=== PATIENT | male | born 1995 | race Caucasian/White ===

== ENCOUNTER 2025-02-08 11:36 | Emergency (ER) | payer BC ==
[2025-02-08] MEDS ORDERED: CIPROFLOXACIN 400mg IV 400 MG/200 ML BAG IV ONE (12:06)
[2025-02-08] MEDS ORDERED: METRONIDAZOLE 500mg IVPB 500 MG/100 ML BAG IV ONE (12:06)
[2025-02-08 12:13] LABS: Absolute Lymphocytes (CBC) 1.9 K/uL (0.7-4.9); Hematocrit 42.2 % (39.6-49.0); Hemoglobin 14.2 g/dL (13.6-17.9); MCH 29.9 pg (27.0-35.0); MCHC 33.6 g/dL (32.0-36.0); MCV 88.8 fL (80-100); MPV 7.2 fL (7.6-11.3); Nucleated RBC Absolute Count 0.0 (0-0); Nucleated Red Blood Cells % 0.1 % (0-0); RBC Red Blood Cell Count 4.75 M/uL (4.33-5.43); White Blood Count 6.30 thou/uL (4.3-10.9)
[2025-02-08 12:28] LABS: Influenza A Ag Negative; Influenza B Ag Negative; SARS-CoV-2 Antigen Rapid Res Negative (Negative)
[2025-02-08 12:32] LABS: ALT/SGPT 45.0 U/L (16-61); AST/SGOT 21.0 U/L (15-37); Albumin 3.5 g/dL (3.4-5.0); Albumin/Globulin Ratio 0.9 (1.1-1.8); Alkaline Phosphatase 59.0 U/L (45-117); Anion Gap 11.7 mEq/L (5.0-15.0); BUN Blood Urea Nitrogen 9.0 mg/dL (7-18); Globulin 3.8 g/dL (2.3-3.5); Glucose Level 140.0 mg/dL (74-106); Potassium 3.7 mEq/L (3.5-5.1)
--- NOTE | 2025-02-08 13:41 | EDPHYS ---
Physician Documentation [facility] Name: Larry Guaman Age: 29 yrs Sex: Male : 1995 Arrival Date: 02/08/2025 Time: 11:36 Bed 6 Private MD: ED Physician Orlando Nuñez HPI: 02/08 11:58 This 29 yrs old Male presents to ER via Ambulatory with complaints of dr5 Abdominal Pain, Rectal Bleeding. 11:58 The patient presents with abdominal pain. Onset: The symptoms/episode began/occurred 2 dr5 day(s) ago. The patient has been recently seen at an urgent care, [facility] and urgent care. Patient is an 29-year-old male with no past med history coming in with continued generalized abdominal pain and diarrhea for the past 2 days. Patient reports that he went to [place] [facility] and had CT scan done with normal results as well as normal blood work. Patient states that they prophylactically put him on ciprofloxacin and metronidazole for colitis. Patient reports he has taken 1 day of it with no relief of pain. Patient reports he has a cream that is at his pharmacy ready for pickup for his anal fissure.. Historical: - Allergies: 11:45 No Known Allergies; iw - Home Meds: 11:45 None [Active]; iw - PMHx: 11:45 None; iw - PSHx: 11:45 None; iw - Immunization history:: Adult Immunizations. - Infectious Disease History:: Denies. - Social history:: Smoking status: Patient reports the use of cigarette tobacco products. ROS: 11:58 Constitutional: as per hpi dr5 Exam: 11:58 Constitutional: This is a well developed, well nourished patient who is awake, alert, dr5 and in no acute distress. Head/Face: Normocephalic, atraumatic. Eyes: Pupils equal round and reactive to light, extra-ocular motions intact. Lids and lashes normal. Conjunctiva and sclera are non-icteric and not injected. Cornea within normal limits. Periorbital areas with no swelling, redness, or edema. Neck: Trachea midline, no thyromegaly or masses palpated, and no cervical lymphadenopathy. Supple, full range of motion without nuchal rigidity, or vertebral point tenderness. No Meningismus. Chest/axilla: Normal chest wall appearance and motion. Nontender with no deformity. No lesions are appreciated. Cardiovascular: Regular rate and rhythm with a normal S1 and S2. Normal PMI, no JVD. No pulse deficits. Respiratory: Lungs have equal breath sounds bilaterally, clear to auscultation. No rales, rhonchi or wheezes noted. No increased work of breathing, no retractions or nasal flaring. Abdomen/GI: Soft, non-tender, non-distended Back: No spinal tenderness. No costovertebral tenderness. Full range of motion. Skin: Warm, dry with normal turgor. Normal color with no rashes, no lesions, and no evidence of cellulitis. MS/ Extremity: Pulses equal, no cyanosis. Neurovascular intact. Full, normal range of motion. Neuro: Awake and alert, GCS 15, oriented to person, place, time, and situation. Cranial nerves II-XII grossly intact. Motor strength 5/5 in all extremities. Sensory grossly intact. Cerebellar exam normal. Normal gait. Vital Signs: 11:44 BP 124 / 84; Pulse 71; Resp 16; Temp 97.6; Pulse Ox 100% on R/A; Weight 86.18 kg; iw Height 5 ft. 10 in. ; 13:30 BP 106 / 65; Pulse 69; Resp 18; Pulse Ox 100% ; kn 11:44 Body Mass Index 27.26 (86.18 kg, 177.8 cm) iw MDM: 11:39 Medical Screening Exam initiated dr5 12:59 Differential diagnosis: Electrolyte abnormality, leukocytosis, colitis, acute kidney dr5 injury, colon cancer. Data reviewed: vital signs, nurses notes, lab test result(s), CBC, white blood cell count, hemoglobin, hematocrit, platelets, electrolytes, sodium, potassium, chloride, serum bicarbonate, BUN, creatinine, serum glucose. Consideration of Admission/Observation Escalation of care including admission/observation considered. Admission considered patient found to be febrile with leukocytosis on labs.. I considered the following discharge prescriptions or medication management in the emergency department I discussed and recommended Over The Counter medications, Medications were administered in the Emergency Department. See MAR. Test considered but Not performed: CT: CT considered but not completed due to patient having CT abdomen pelvis with contrast 2 days ago at [facility].. Historians other than the Patient: Spouse/Significant Other: Spouse. External Records Reviewed: Outside ED record: Spoke with [place] [facility] that had CT scan. CT result revealed no acute abnormality. No colitis, no appendicitis, no diverticulosis or diverticulitis.. Care significantly affected by the following Social Determinants of Health: Poor access to healthcare and/or lack of insurance, Poor access to transportation, Problems related to employment. Counseling: I had a detailed discussion with the patient and/or guardian regarding the historical points, exam findings, and any diagnostic results supporting the discharge/admit diagnosis, the presence of at least one elevated blood pressure reading (>120/80) during this emergency department visit, lab results, the need for outpatient follow up, for definitive care, a family practitioner, a optimization specialist. Medication response: Cipro, Flagyl. 13:03 Response to treatment: the patient's symptoms have mildly improved after treatment. dr5 Special discussion: Based on the patient's Hx, exam, and Dx evaluation, there is no indication for emergent surgery or inpatient Tx. It is understood by the patient/guardian that if the Sx's persist or worsen they need to return immediately for re-evaluation. I discussed with the patient/guardian in detail that at this point there is no indication for admission to the hospital. It is understood, however, that if the symptoms persist or worsen the patient needs to return immediately for re-evaluation. Based on the presenting symptoms and work-up in the emergency department, I discussed in detail the need to arrange with the PCP or specialist an outpatient procedure, colonoscopy by the GI specialist, Based on the history and exam findings, there is no indication for further emergent testing or inpatient evaluation. I discussed with the patient/guardian the need to see the optimization specialist for further evaluation of the symptoms. ED course: Patient's labs are stable with no acute abnormality. All labs printed and given to patient to take with him. Recommended patient follow-up with GI doctor. Patient states that he tried to follow-up with GI but unable to due to insurance reasons and high cost. Spouse at bedside states that she has a close relative that is able to work with her about getting her into GI. Recommended continuing Cipro and Flagyl. Will also give patient pain medication and with abdominal pain. Recommended patient grab cream from pharmacist for anal pain. Patient and patient's spouse are both agreeable plan. All questions answered.. 02/08 11:50 Order name: CBC with Diff; Complete Time: 12:16 dr5 02/08 11:50 Order name: CMP; Complete Time: 12:33 dr5 02/08 11:54 Order name: COVID-19 Ag + Flu A+B Ag; Complete Time: 12:29 dr5 Administered Medications: 12:18 Drug: metroNIDAZOLE IVPB 500 mg 100 ml IVPB once over 30 mins Volume: 100 ml; Route: nh2 IVPB; Infused Over: 30 mins; Site: right forearm; 12:30 Follow up: Response: No adverse reaction aa5 13:57 Follow up: Response: No adverse reaction; IV Status: Completed infusion kn 12:30 Drug: Ciprofloxacin IVPB 400 mg 200 ml IVPB once over 60 mins Volume: 200 ml; Route: aa5 IVPB; Infused Over: 60 mins; Site: right forearm; 13:57 Follow up: Response: No adverse reaction; IV Status: Completed infusion kn Disposition: 15:04 Co-signature as Attending Physician, Orlando Nuñez MD I reviewed the patient's care rn provided by the Advanced Practice Provider and agree with the diagnosis and treatment plan. Disposition Summary: 02/08/25 13:40 Discharge Ordered Notes: Location: Home dr5 Condition: Stable dr5 Diagnosis - Other specified noninfective gastroenteritis and colitis dr5 Followup: dr5 - With: Emergency Department - When: As needed - Reason: Worsening of condition Followup: dr5 - With: Private Physician - When: 1 - 2 days - Reason: Recheck today's complaints, Continuance of care, Re-evaluation by your physician Discharge Instructions: - Discharge Summary Sheet dr5 - Colitis dr5 Forms: - Work release form dr5 - Medication Reconciliation Form dr5 - Antibiotic Education dr5 - Prescription Opioid Use dr5 - Patient Portal Instructions dr5 - Leadership Thank You Letter dr5 Prescriptions: - Zofran 4 mg Oral Tablet - take 1 tablet ORAL route every 12 hours As needed; 20 tablet; Refills: 0, dr5 Product Selection Permitted - Tramadol 50 mg Oral tablet - take 1 tablet ORAL route every 8 hours as needed; 20 tablet; Refills: 0, dr5 Product Selection Permitted Signatures: Dispatcher [employer] Deidre Davis RN RN iw Nieto, Roman, MD MD rn Calderon, Audri, RN RN aa5 Ron Hughes Jr, RN RN nh2 Zain Renee, SWETA-C FEATHEREDGE MACHINE OPERATOR-Cdr5 SABRINA BIRCH RN
--- NOTE | 2025-02-08 13:41 | ER ---
Nurse's Notes [facility] Name: Larry Guaman Age: 29 yrs Sex: Male : 1995 Arrival Date: 02/08/2025 Time: 11:36 Bed 6 Private MD: Diagnosis: Other specified noninfective gastroenteritis and colitis Presentation: 02/08 11:44 Chief complaint: Patient states: was seen at [place] [facility] last week, had CT done, is iw still having mucous and rectal bleeding. Coronavirus screen: At this time, the client does not indicate any symptoms associated with coronavirus-19. Ebola Screen: No symptoms or risks identified at this time. Initial Sepsis Screen: Does the patient meet any 2 criteria? No. Patient's initial sepsis screen is negative. Does the patient have a suspected source of infection? No. Patient's initial sepsis screen is negative. Risk Assessment: Do you want to hurt yourself or someone else? Patient reports no desire to harm self or others. 11:44 Method Of Arrival: Ambulatory iw 11:44 Acuity: GENE 3 iw 11:46 Onset of symptoms was February 05, 2025. iw Triage Assessment: 12:10 General: Appears in no apparent distress. comfortable, Behavior is calm, cooperative, kn appropriate for age. Neuro: No deficits noted. Carney Agitation-Sedation Scale (RASS): 0 - Alert and Calm. Cardiovascular: No deficits noted. Respiratory: No deficits noted. Historical: - Allergies: 11:45 No Known Allergies; iw - Home Meds: 11:45 None [Active]; iw - PMHx: 11:45 None; iw - PSHx: 11:45 None; iw - Immunization history:: Adult Immunizations. - Infectious Disease History:: Denies. - Social history:: Smoking status: Patient reports the use of cigarette tobacco products. Screenin:00 [facility] ED Fall Risk Assessment (Adult) History of falling in the last 3 months, nh2 including since admission No falls in past 3 months (0 pts) Confusion or Disorientation No (0 pts) Intoxicated or Sedated No (0 pts) Impaired Gait No (0 pts) Mobility Assist Device Used No (0 pt) Altered Elimination No (0 pt) Score/Fall Risk Level 0 - 2 = Low Risk Oriented to surroundings, Maintained a safe environment, Educated pt \T\ family on fall prevention, incl call for assistance when getting out of bed, Assessed \T\ reinforced patient's understanding of fall precautions. Abuse screen: Denies threats or abuse. Nutritional screening: No deficits noted. Tuberculosis screening: No symptoms or risk factors identified. Assessment: 12:00 General: Appears comfortable, Behavior is calm, cooperative. Pain: Complains of pain in nh2 right lower quadrant and left lower quadrant and back Quality of pain is described as uncomfortable Pain began 2-3 days ago. Neuro: Level of Consciousness is awake, alert, obeys commands, Oriented to person, place, time, situation. Cardiovascular: Patient's skin is warm and dry. Respiratory: Airway is patent Respiratory effort is even, unlabored, Respiratory pattern is regular, symmetrical. GI: Abdomen is round non-distended, Bowel sounds present X 4 quads. Abd is soft and non tender X 4 quads. Reports bright red rectal bleeding x 2-3 days ago. Reports ongoing issue of having loose stools and rectal mucus. : No signs and/or symptoms were reported regarding the genitourinary system. EENT: No signs and/or symptoms were reported regarding the EENT system. Derm: Skin is pink, warm \T\ dry. Musculoskeletal: Range of motion: intact in all extremities. 12:30 Reassessment: Patient is alert, oriented x 3, equal unlabored respirations, skin aa5 warm/dry/pink. 13:46 Reassessment: d/c pending, IV abx infusing. kn Vital Signs: 11:44 BP 124 / 84; Pulse 71; Resp 16; Temp 97.6; Pulse Ox 100% on R/A; Weight 86.18 kg; iw Height 5 ft. 10 in. ; 13:30 BP 106 / 65; Pulse 69; Resp 18; Pulse Ox 100% ; kn 11:44 Body Mass Index 27.26 (86.18 kg, 177.8 cm) iw ED Course: 11:39 Patient arrived in ED. ts1 11:39 Zain Renee [facility]NP-C [facility]. dr5 11:39 Orlando Nuñez MD is Attending Physician. dr5 11:45 Triage completed. iw 11:45 Arm band placed on. iw 12:00 Patient has correct armband on for positive identification. Bed in low position. Call nh2 light in reach. Side rails up X2. Adult w/ patient. Pulse ox on. NIBP on. 12:02 Missed attempt(s): 20 gauge in right forearm. Bleeding controlled, band aid applied, pm7 catheter tip intact. 12:04 Rosa Elena Boykin, RN is Primary Nurse. aa5 12:04 Initial lab(s) drawn, by me, sent to lab. Inserted saline lock: 20 gauge in right aa5 forearm, using aseptic technique. Blood collected. Flushed with 10 mL NS. 12:05 COVID swab sent to lab. aa5 12:27 No provider procedures requiring assistance completed. nh2 13:58 Provided Education on: use of call light, plan of care. pt verbalizes understanding. . kn 13:58 IV discontinued, intact, bleeding controlled, No redness/swelling at site. Pressure kn dressing applied. Administered Medications: 12:18 Drug: metroNIDAZOLE IVPB 500 mg 100 ml IVPB once over 30 mins Volume: 100 ml; Route: nh2 IVPB; Infused Over: 30 mins; Site: right forearm; 12:30 Follow up: Response: No adverse reaction aa5 13:57 Follow up: Response: No adverse reaction; IV Status: Completed infusion kn 12:30 Drug: Ciprofloxacin IVPB 400 mg 200 ml IVPB once over 60 mins Volume: 200 ml; Route: aa5 IVPB; Infused Over: 60 mins; Site: right forearm; 13:57 Follow up: Response: No adverse reaction; IV Status: Completed infusion Medication: 12:26 VIS not applicable for this client. nh2 Outcome: 13:40 Discharge ordered by MD. dr5 13:58 Discharged to home ambulatory, with family, kn 13:58 Condition: stable 13:58 Discharge instructions given to patient, Prescriptions given X 2, 13:59 Patient left the ED. Signatures: Deidre Kelly, RN RN Rosa Elena Boykin, RN RN aa5 Odilia Dunlap PAS PAS ts1 SABRINA BIRCH RN RN kn Hernandez Jr, Ron RN RN nh2 Zain Renee FNP-C RADIOTELEGRAPHER-5 Lynda Padilla pm7 Corrections: (The following items were deleted from the chart) 11:45 11:44 BP 124 / 84; Pulse 71bpm; Resp 16bpm; Pulse Ox 100% RA; Temp 97.6F; iw iw 11:46 11:44 Chief complaint: Patient states: was seen at [place] [facility] last week, had CT done, iw is still having mucous and rectal bleeding iw 12:36 12:04 Inserted saline lock: 20 gauge in right forearm, using aseptic technique. Blood aa5 collected. Flushed with 10 mL NS nh2 : 12:04 Initial lab(s) drawn, by me, sent to lab. nh2 aa5 12: 12:05 COVID swab sent to lab. nh2 aa5
[2025-02-08 14:03] VITALS: TEMP 97.6; O2SAT 100
[2025-02-08 14:05] VITALS: BP 106/65
== END 2025-02-08 13:59 | disposition home or self-care (01) ==
LOC: ER 11:36
DX: K52.89 Other specified noninfective gastroenteritis and colitis (principal); Z11.52 Encounter for screening for COVID-19; Z72.0 Tobacco use
CPT/HCPCS: 96365; 85025; 36415; 80053; 99284; 87428; J0744